=== PATIENT | female | born 1945 | race Caucasian/White ===

== ENCOUNTER → 2020-01-22 | Outpatient (CLI) | payer BC | END | disposition home or self-care (01) | LOC: STAR 10:34 | PROVIDERS: ATTEND Anesthesiology | DX: Z20.828 Contact with and (suspected) exposure to other viral communicable diseases (principal) | CPT/HCPCS: 87635 ==

== ENCOUNTER 2020-01-28 06:05 | Day surgery (SDC) | payer BC ==
[~2020-01-28] VITALS: Ht 165.1 cm; Wt 69.0 kg
[2020-01-28 06:39] VITALS: BP 180/89
[2020-01-28] MEDS ORDERED: CHLORHEXIDINE 15 ML UDC MM STA (06:49)
[2020-01-28] MEDS ORDERED: AMLO-211 PO (06:51)
[2020-01-28] MEDS ORDERED: LACTATED RINGERS 1,000 ML IV SCH (07:00)
[2020-01-28 07:36] LABS: ALANINE AMINOTRANSFERASE 14 U/L (12-78); ALBUMIN 3.6 g/dL (3.4-5.0); ANION GAP 6 mmol/L (5-15); CALCIUM 8.7 mg/dL (8.5-10.1); CHLORIDE 106 mmol/L (98-107); CREATININE 0.77 mg/dL (0.55-1.02)
[2020-01-28] MEDS ORDERED: FENTANYL PF 100 MCG/2ML ONE (07:36)
[2020-01-28 07:38] LABS: ALKALINE PHOSPHATASE 80 U/L (45-117); BILIRUBIN,TOTAL 0.9 mg/dL (0.2-1.0); TOTAL PROTEIN 7.3 g/dL (6.4-8.2)
[2020-01-28] MEDS ORDERED: PROMETHAZINE 25 MG/ML, 1ML IVPush PRN (08:00)
[2020-01-28] MEDS ORDERED: DIAZEPAM 5 MG/ML, 2ML IVPush PRN (08:00)
[2020-01-28] MEDS ORDERED: MEPERIDINE/PF 25MG/0.5ML IVPush PRN (08:00)
[2020-01-28] MEDS ORDERED: FENTANYL PF 100 MCG/2ML IV PRN (08:00)
[2020-01-28] MEDS ORDERED: ONDANSETRON 2MG/ML, 2ML IVPush PRN (08:00)
[2020-01-28] MEDS ORDERED: HYDROmorphone 1 MG/ML, 1ML INJ IVPush PRN (08:00)
[2020-01-28] MEDS ORDERED: MIDAZOLAM 1 MG/ML, 2ML IV PRN (08:00)
[2020-01-28] MEDS ORDERED: DIPHENHYDRAMINE 50 MG/ML, 1ML IVPush PRN (08:00)
[2020-01-28] MEDS ORDERED: ALBUTEROL SULFATE 2.5 MG/3 ML NPPB PRN (08:00)
[2020-01-28] MEDS ORDERED: hydrALAzine 20 MG/ML, 1ML IV PRN (08:00)
[2020-01-28] MEDS ORDERED: EPHEDRINE 50 MG/ML, 1ML IVPush PRN (08:00)
[2020-01-28] MEDS ORDERED: LABETALOL 5MG/ML, 20ML IV PRN (08:00)
[2020-01-28] MEDS ORDERED: PROMETHAZINE 12.5 MG SUPP PR PRN (08:00)
[2020-01-28] MEDS ORDERED: OXYcodone 5 MG/5 ML ORAL.SOL UDC PO PRN (08:00)
== END 2020-01-28 09:30 | disposition home or self-care (01) ==
LOC: OUT 06:05
PROVIDERS: ATTEND Colon & Rectal Surgery
DX: K62.1 Rectal polyp (principal); K62.4 Stenosis of anus and rectum; K57.32 Diverticulitis of large intestine without perforation or abscess without bleeding; I10 Essential (primary) hypertension; F17.210 Nicotine dependence, cigarettes, uncomplicated; Z79.899 Other long term (current) drug therapy; Z72.89 Other problems related to lifestyle
CPT/HCPCS: 36415; 45380; 80053; 88305; 93005; J3010